=== PATIENT | female | born 1960 | race Two or more races ===

== ENCOUNTER 2024-09-03 06:58 | Inpatient (IN) | payer OTHER ==
[2024-08-30 12:21] VITALS: BP 153/91
[~2024-09-03] VITALS: Ht 162.6 cm; Wt 77.1 kg
[~2024-09-03 06:58] MED LIST: KLONOPIN; SINGULAIR10 MG PO; ZYRTEC10 M3
[2024-09-03] MEDS ORDERED: CEFAZOLIN SODIUM 1,000 MG VIAL ONE (13:59)
[2024-09-03] MEDS ORDERED: DEXAMETHASONE SODIUM PHOSPHATE 4 MG/ML VIAL ONE (13:59)
[2024-09-03] MEDS ORDERED: INSULIN LISPRO 1,000 UNIT/10 ML UNITS SUBCUTANEO PRN (16:00)
[2024-09-03] MEDS ORDERED: ONDANSETRON HCL 2 MG/ML VIAL IV PRN (16:00)
[2024-09-03] MEDS ORDERED: DEXTROSE 50 % IN WATER 0.5 G/ML DISP.SYRIN IV PRN (16:00)
[2024-09-03] MEDS ORDERED: TRAMADOL HCL 50 MG TABLET PO SCH (17:00)
[2024-09-03] MEDS ORDERED: Calcium Carbonate 1 TAB TABLET PO SCH (21:00)
[2024-09-03] MEDS ORDERED: CYCLOBENZAPRINE HCL 5 MG TABLET PO SCH (21:00)
[2024-09-03] MEDS ORDERED: PANTOPRAZOLE SODIUM 40 MG/VIAL VIAL IV PUSH SCH (21:00)
[2024-09-03 21:56] VITALS: BP 136/83; O2SAT 99
[2024-09-04 00:18] VITALS: BP 130/79; O2SAT 97
[2024-09-04 07:00] VITALS: BP 130/82; O2SAT 96
== END 2024-09-04 13:15 | disposition home or self-care (01) | DRG 627 ==
LOC: CIR.AMB 06:58 → O/R 17:06 → MEDI 19:41
PROVIDERS: ADMIT Surgery; ATTEND Surgery
PROC: 0GBP0ZZ Excision of Left Inferior Parathyroid Gland, Open Approach (ICD-10-PCS; principal; 2024-09-03 14:00)
DX: D35.1 Benign neoplasm of parathyroid gland (principal)